=== PATIENT | male | born 1935 | race Caucasian/White ===

== ENCOUNTER 2016-06-15 09:27 | Inpatient (IN) | payer OTHER ==
[~2016-06-15] VITALS: Ht 167.6 cm; Wt 60.8 kg
[2016-06-15 09:30] VITALS: BP 141/87; PULSE 101; RESP 30; TEMP 97.1; O2SAT 84
--- NOTE | 2016-06-15 09:30 | NUR ---
Arrived via WC from home with SOB for several daym, was seen yesterday at [facility], started on Doxycycline. brought pt in due to worsening SOB and poor PO intake x 2 days. Patient is tachypneac with resp 30 with accessory muscle use, speakingin full snetences. Placed in room 2 . Placed on research and development specialist, blood pressure machine and pulse oximeter. To gown for exam. Side rails up. Report given to Eduardo ELIZONDO.
--- NOTE | 2016-06-15 09:35 | NUR ---
Dr. Chow at beside examaining patient.
--- NOTE | 2016-06-15 09:40 | NUR ---
Patient brought in by his with chief complaint of persistent cough x 2 weeks.Patient states he has had low energy, poor appetite x 3 days. Upon assessement patient presents labored breathing, O2sat 88%. A-fib on monitor noted. Addendum: 06/15/16 at 1042 by YANET Pt states no other complaint or injuries,none noted.
[2016-06-15] MEDS ORDERED: IPRATROPIUM/ALBUTEROL SULFATE 3 ML AMPUL.NEB INH ONE (09:45)
[2016-06-15] MEDS ORDERED: AZITHROMYCIN 500 MG in NS 250 ML IV ONE (09:45)
[2016-06-15] MEDS ORDERED: methylPREDNISolone SOD SUCC/PF 62.5 MG/ML VIAL IVP ONE (09:45)
[2016-06-15] MEDS ORDERED: cefTRIAXone 1 GM IVPB PREMIX 50 ML IV ONE (09:45)
--- NOTE | 2016-06-15 09:50 | NUR ---
# 20 gauge angiocath placed to LAC. Use of asceptic technique. Opsite placed over site. Blood return noted. Blood for lab drawn from site. Flushed with 10 cc of normal saline. No evidence of infiltration noted. Patient tolerated well.
[2016-06-15 10:03] LABS: BASOPHILS % (AUTO) 0.2 % (0.0-2.0); EOSINOPHILS % (AUTO) 0.6 % (0.0-4.0); HEMATOCRIT 39.8 % (36-54); HEMOGLOBIN 13.4 g/dL (14.0-18.0); LYMPHOCYTES # (AUTO) 1.1 K/uL (1.0-5.5); LYMPHOCYTES % (AUTO) 15.6 % (20.5-51.5); MEAN CORPUSCULAR HEMOGLOBIN 35 pg (27-31); MEAN CORPUSCULAR HGB CONC 34 % (32-36); MEAN CORPUSCULAR VOLUME 103 fL (79.0-98.0); MONOCYTES # (AUTO) 0.4 K/uL (0.0-1.0); MONOCYTES % (AUTO) 5.1 % (1.7-9.3); NEUTROPHILS # (AUTO) 5.4 K/uL (1.8-7.7); NEUTROPHILS % (AUTO) 78.5 % (40.0-70.0); PLATELET COUNT (AUTO) 168 K/uL (130-430); RED BLOOD CELL COUNT(AUTO) 3.86 MIL/uL (4.2-6.2); RED CELL DISTRIBUTION WIDTH 14.7 % (9.0-15.0); WHITE BLOOD COUNT (AUTO) 6.9 K/uL (4.8-10.8)
--- NOTE | 2016-06-15 10:10 | NUR ---
Patient medicated as ordered.Patient tolerating well.
[2016-06-15] MEDS: NACL 0.9% 1,000 ML IV SCH ×2 (10:11→10:12)
[2016-06-15 10:13] LABS: ANION GAP 6 (5-15); CALCIUM 8.4 mg/dL (8.4-11.0); CHLORIDE 102 mmol/L (98-107); CREATININE 0.85 mg/dL (0.55-1.30); GLUCOSE 99 mg/dL (70-99); POTASSIUM 4.1 mmol/L (3.5-5.1); SODIUM SERUM 136 mmol/L (136-145); UREA NITROGEN, BLOOD 14 mg/dL (8-21)
[2016-06-15 10:14] LABS: BLOOD GAS PH 7.437 (7.350-7.450)
[2016-06-15 10:15] LABS: INR 2.6 (0.80-1.20); PROTHROMBIN TIME 29.5 SECS (9.5-12.5)
[2016-06-15 10:16] LABS: ABG TOTAL HEMOGLOBIN 13.2 G/dL (12.0-18.0); BLOOD GAS BASE EXCESS 0.4 mmol/L (-3.0-3.0); BLOOD GAS HHB 11.2 % (0.0-6.0); BLOOD O2Hb% 87.7 % (94.0-97.0)
[2016-06-15 10:18] LABS: ALANINE AMINOTRANSFERASE 24 U/L (12-78); ALBUMIN 3.6 g/dL (3.4-4.8); ASPARTATE AMINOTRANSFERASE 31 U/L (10-37); TOTAL BILIRUBIN 1.1 mg/dL (0.0-1.0); TOTAL PROTEIN, SERUM 6.8 g/dL (6.4-8.3)
--- NOTE | 2016-06-15 10:40 | NUR ---
Patient off unit for CT scan
--- NOTE | 2016-06-15 10:57 | NUR ---
Patient returned from CT scan. Placed back on monitor.
[2016-06-15] MEDS ORDERED: AZITHROMYCIN 500 MG/VIAL (ZITHROMAX) IV ONE (11:00)
--- NOTE | 2016-06-15 11:00 | NUR ---
# 16 FR In and Out catheter with use of sterile technique performed per Dr. Chow verbal order. Immediate return of 10 ml clear, yellow urine noted. Urine sample collected and sent to lab. Pt tolerated procedure well.
[2016-06-15] MEDS ORDERED: APIX2.5T PO (11:34)
[2016-06-15] MEDS ORDERED: FERR256T PO (11:34)
[2016-06-15] MEDS ORDERED: APIX5TAB PO (11:34)
[2016-06-15] MEDS ORDERED: OMEG1CAP48 PO (11:34)
[2016-06-15] MEDS ORDERED: DOXY150C4 PO (11:34)
[2016-06-15] MEDS ORDERED: VEN2 PO (11:34)
[2016-06-15] MEDS ORDERED: METH2.5T PO (11:34)
[2016-06-15] MEDS ORDERED: FOLI-43 PO (11:34)
[2016-06-15] MEDS ORDERED: SIMV20TA6 PO (11:34)
[2016-06-15] MEDS ORDERED: AMLO5TAB4 PO (11:34)
[2016-06-15] MEDS ORDERED: CHOL200019 PO (11:34)
[2016-06-15] MEDS ORDERED: METO50TA3 PO (11:34)
[2016-06-15] MEDS ORDERED: LISI-600 PO (11:34)
[2016-06-15] MEDS ORDERED: ALBU2.5V7 INH (11:34)
--- NOTE | 2016-06-15 11:35 | NUR ---
Medication reconciliation completed with information provided by patient. Any prior medication reconciliation on file was reviewed and corrected.
[2016-06-15 12:05] LABS: BILIRUBIN,URINE NEGATIVE (NEGATIVE); BLOOD, URINE NEGATIVE (NEGATIVE); CLARITY/URINE CLEAR (CLEAR); COLOR,URINE YELLOW (YELLOW); GLUCOSE,URINE NEGATIVE (NEGATIVE); KETONES,URINE 1+ (NEGATIVE); LEUKOCYTE ESTERASE ,URINE NEGATIVE (NEGATIVE); NITRITE, URINE NEGATIVE (NEGATIVE); PROTEIN URINE NEGATIVE (NEGATIVE); UROBILINOGEN,URINE 0.2 (0.2-1.0)
[2016-06-15 12:20] LABS: BACTERIA,URINE MODERATE /HPF (None Seen); MUCUS,URINE 1+ /LPF (None Seen); RBC,URINE 0-3 /HPF (0-3); WBC,URINE 0-3 /HPF (0-3)
--- NOTE | 2016-06-15 12:50 | NUR ---
Patient will be admitted to care of Dr Edge. Admitted to tele unit. Will go to room 104 B. Belongings list completed. Summary report printed. Report given at bedside.
--- NOTE | 2016-06-15 13:00 | NUR ---
ADMISSION NOTE Received patient from ER via aimee, received report from JONES ELIZONDO. Patient admitted with diagnosis of COPD EXACERBATION. Patient oriented to hospital routine, call light, toileting and safety-patient verbalized understanding.
[2016-06-15 13:07] VITALS: BP 135/78; PULSE 65; RESP 18; TEMP 97.8; O2SAT 98
--- NOTE | 2016-06-15 13:10 | NUR ---
notes rec patient awake laert with hob elevated with o2 at 2 liters via nasal cannula. no sob noted. resp easy and unlabored but noted with bilateral wheezing. accompanied by at the bedside. bed in low position and side rails up and locked. call light within reached and instructed to call for assistance. provided urinal at bedside. will continue to monitor patient.
[2016-06-15] MEDS ORDERED: IPRATROPIUM/ALBUTEROL SULFATE 3 ML AMPUL.NEB INH PRN (14:00)
--- NOTE | 2016-06-15 14:00 | NUR ---
rounds pt resting with hob elevated. o2 at 2 liters via nasal cannula in place.
[2016-06-15 14:06] VITALS: BP 135/78; PULSE 65
[2016-06-15] MEDS: IPRATROPIUM/ALBUTEROL SULFATE 3 ML AMPUL.NEB INH SCH ×3 (15:18→23:44)
--- NOTE | 2016-06-15 16:00 | NUR ---
rounds sleeping at this time. no sob noted. call light within reached.
[2016-06-15] MEDS: methylPREDNISolone SOD SUCC/PF 62.5 MG/ML VIAL IVP SCH ×2 (18:28→21:16)
--- NOTE | 2016-06-15 18:45 | NUR ---
closing notes pt resting comfortably at this time. no acute distress, resp easy and unlabored with o2 at 2 liters via nasal cannula. stable. no sob noted. uses the urinal at bedside, in the room with patient.
[2016-06-15 20:00] VITALS: BP 127/87; PULSE 96; RESP 18; TEMP 98.3; O2SAT 95
--- NOTE | 2016-06-15 20:07 | NUR ---
MD APONTE CALLED [facility] AT [phone]NGUYEN CERVANTES CHIBAO DANCE CRITIC.
--- NOTE | 2016-06-15 20:10 | NUR ---
PM Shift Assessment Received patient lying in bed, AAO x4, no acute distress noted, is at the bedside. Assessment complete, vital signs stable, 95% oxygen saturation with nasal cannula at 2L/min, no complain of difficulty breathing or shortness of breath. IV noted to left AC, saline locked at this time, flushes well, no redness or swelling noted to IV site. Plan of care discussed with patient and at bedside, they verbalized understanding. Patient is verbally able to make needs known and encouraged to do so. Call light is within reach, all fall and safety precautions in place, will continue to monitor for change in patient status.
--- NOTE | 2016-06-15 20:22 | NUR ---
MD Called Dr Reyes, infection prevention specialist for Dr Osullivan, was called and made aware that patient states he usually takes melatonin at home to help him sleep and is requesting something for sleep. New orders received for PRN Restoril 15mg PO QHS. Orders noted and to be carried out.
[2016-06-15] MEDS: TEMAZEPAM 15 MG CAPSULE PO PRN (21:17)
[2016-06-15] MEDS: SIMVASTATIN 20 MG TABLET PO SCH (21:17)
--- NOTE | 2016-06-15 22:20 | NUR ---
RN Rounds Patient is resting quietly in bed, no acute respiratory distress noted. Scheduled medications were administered per MD order earlier. PRN Restoril was administered per patient request. Encouraged patient to call with all needs, he verbalized understanding. Call light is within reach, all fall and safety precautions in place, will continue to monitor. Addendum: 06/15/16 at 2225 by Alma Delia Irving RN Warm tea provided for throat comfort.
[2016-06-16 00:05] VITALS: BP 128/84; PULSE 107; RESP 17; TEMP 96.2; O2SAT 100
--- NOTE | 2016-06-16 00:19 | NUR ---
RN Rounds Patient is resting quietly in bed, no acute respiratory distress noted. Vital signs stable, patient tolerating nasal cannula at 2L/min well. Call light is within reach, all fall and safety precautions in place, will continue to monitor.
--- NOTE | 2016-06-16 02:24 | NUR ---
RN Rounds Patient is sleeping but easily arousable, no acute distress noted. Oxygen saturation 94% with nasal cannula at 2L/min. Call light is within reach, all fall and safety precautions in place, will continue to monitor.
[2016-06-16] MEDS: IPRATROPIUM/ALBUTEROL SULFATE 3 ML AMPUL.NEB INH SCH ×6 (03:43→23:10)
[2016-06-16 04:19] VITALS: BP 137/100; PULSE 95; RESP 17; TEMP 97.2; O2SAT 93
--- NOTE | 2016-06-16 04:38 | NUR ---
RN Rounds Patient is resting quietly in bed, no acute distress noted. Warm blanket provided for comfort and patient made comfortable in bed. Call light is within reach, all fall and safety precautions in place, will continue to monitor.
[2016-06-16] MEDS: methylPREDNISolone SOD SUCC/PF 62.5 MG/ML VIAL IVP SCH ×3 (05:44→21:59)
--- NOTE | 2016-06-16 06:35 | NUR ---
Closing Notes Patient is resting quietly in bed, no acute distress noted. No complain of shortness of breath throughout shift. Patient is stable, all needs met throughout shift. Will continue to monitor until endorsed to AM nurse at bedside.
[2016-06-16 06:50] LABS: ANION GAP 7 (5-15); CALCIUM 8.4 mg/dL (8.4-11.0); CHLORIDE 103 mmol/L (98-107); GLUCOSE 310 mg/dL (70-99); POTASSIUM 3.6 mmol/L (3.5-5.1); SODIUM SERUM 136 mmol/L (136-145); UREA NITROGEN, BLOOD 15 mg/dL (8-21)
[2016-06-16 06:54] LABS: BASOPHILS % (AUTO) 0.1 % (0.0-2.0); EOSINOPHILS % (AUTO) 0.1 % (0.0-4.0); HEMATOCRIT 34.9 % (36-54); HEMOGLOBIN 11.6 g/dL (14.0-18.0); LYMPHOCYTES # (AUTO) 0.4 K/uL (1.0-5.5); LYMPHOCYTES % (AUTO) 3.6 % (20.5-51.5); MEAN CORPUSCULAR HEMOGLOBIN 34 pg (27-31); MEAN CORPUSCULAR HGB CONC 33 % (32-36); MEAN CORPUSCULAR VOLUME 103 fL (79.0-98.0); MONOCYTES # (AUTO) 0.2 K/uL (0.0-1.0); MONOCYTES % (AUTO) 1.9 % (1.7-9.3); NEUTROPHILS # (AUTO) 11.7 K/uL (1.8-7.7); NEUTROPHILS % (AUTO) 94.3 % (40.0-70.0); PLATELET COUNT (AUTO) 138 K/uL (130-430); RED CELL DISTRIBUTION WIDTH 14.6 % (9.0-15.0); WHITE BLOOD COUNT (AUTO) 12.3 K/uL (4.8-10.8)
[2016-06-16 07:42] LABS: INR 2.4 (0.80-1.20); PROTHROMBIN TIME 27.2 SECS (9.5-12.5)
[2016-06-16 08:00] VITALS: BP 140/89; PULSE 140; RESP 20; TEMP 98; O2SAT 94
--- NOTE | 2016-06-16 08:00 | NUR ---
OPENING NOTE RECEIVED REPORT FROM OFF GOING NURSE. PATIENT RESTING COMFORTABLY AT THIS TIME. NO COMPLAINTS OF ACUTE PAIN AT THIS TIME. NO SIGNS OF DISTRESS NOTED AT THIS TIME. OXYGEN APPLIED AT 2L NC. WILL CONTINUE TO MONITOR FOR CHANGES IN STATUS. BED IN LOWEST POSITION, BED ALARM IS ON, AND SIDE RAILS ARE UP. PATIENTS CALL LIGHT WITHIN REACH.
[2016-06-16] MEDS: METOPROLOL TARTRATE 50 MG TABLET PO SCH (08:08)
[2016-06-16] MEDS: LISINOPRIL 20 MG TABLET PO SCH (08:09)
[2016-06-16] MEDS: FOLIC ACID 1 MG TABLET PO SCH (08:09)
[2016-06-16] MEDS: amLODIPine BESYLATE 5 MG TABLET PO SCH (08:09)
[2016-06-16] MEDS: cefTRIAXone 1 GM in D5W 50 ML IV SCH (08:10)
[2016-06-16] MEDS: AZITHROMYCIN 500 MG in NS 250 ML IV SCH (09:42)
--- NOTE | 2016-06-16 10:29 | NUR ---
1000 NOTE PATIENT RESTING COMFORTABLY AT THIS TIME, FAMILY AT BEDSIDE. NO COMPLAINTS OF ACUTE PAIN AT THIS TIME. NO SIGNS OF DISTRESS NOTED AT THIS TIME. WILL CONTINUE TO MONITOR FOR CHANGES IN STATUS. BED IN LOWEST POSITION, BED ALARM IS ON, AND SIDE RAILS ARE UP. PATIENTS CALL LIGHT WITHIN REACH.
[2016-06-16 11:43] VITALS: BP 109/61; PULSE 97; RESP 16; TEMP 97; O2SAT 92
--- NOTE | 2016-06-16 11:52 | NUR ---
Gregorio scale evaluation: Patient evaluated for low Gregorio score 15. Patient was awake, alert, oriented, and received in a Middle [place] bed with an Atmos-Air 9000 mattress. Patient is wheelchair and bed bound, and needs assist to turn in bed. 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 Recommend encourage and assist patient as needed with repositioning side to side only every 2 hours with pillow support, and offload pressure areas with pillows for pressure redistribution. Elevate, offload and float bilateral heels with pillows. Use moisture barrier cream on buttocks and other moisture susceptible areas 4 times a day, and as needed for soiling. Performed skin care and monitor skin integrity every shift. Place patient on a low air loss mattress.
[2016-06-16 12:27] LABS: ABG TOTAL HEMOGLOBIN 11.9 G/dL (12.0-18.0); BLOOD GAS BASE EXCESS 0.8 mmol/L (-3.0-3.0); BLOOD GAS COHb% 0.1 % (0.5-1.5); BLOOD GAS HHB 5.7 % (0.0-6.0); BLOOD GAS PH 7.464 (7.350-7.450); BLOOD O2Hb% 94.1 % (94.0-97.0)
[2016-06-16 15:34] VITALS: BP 120/74; PULSE 105; RESP 19; TEMP 97; O2SAT 96
--- NOTE | 2016-06-16 18:42 | NUR ---
1800 NOTE AWAITING TRANSFER OF CARE TO ENROLLMENT MANAGEMENT MANAGER NURSE. PATIENT RESTING COMFORTABLY AT THIS TIME, FAMILY AT BEDSIDE. NO COMPLAINTS OF ACUTE PAIN AT THIS TIME. NO SIGNS OF DISTRESS NOTED AT THIS TIME. WILL CONTINUE TO MONITOR FOR CHANGES IN STATUS. BED IN LOWEST POSITION, BED ALARM IS ON, AND SIDE RAILS ARE UP. PATIENTS CALL LIGHT WITHIN REACH.
--- NOTE | 2016-06-16 19:15 | NUR ---
initial nursing notes: Patient awake in bed. Patient has IV access on the left AC. Patient denies of having pain.
[2016-06-16 19:59] VITALS: BP 120/88; PULSE 118; RESP 18; TEMP 97.1; O2SAT 93
--- NOTE | 2016-06-16 21:15 | NUR ---
nursing rounds: Patient resting in bed, watching television.
[2016-06-16] MEDS: TEMAZEPAM 15 MG CAPSULE PO PRN (22:04)
[2016-06-16] MEDS: SIMVASTATIN 20 MG TABLET PO SCH (22:04)
--- NOTE | 2016-06-16 23:15 | NUR ---
nursing rounds: Patient asleep in bed. Patient has no shortness of breath.
[2016-06-17 00:04] VITALS: BP_SYST 106; BP_SYST 125; BP_DIAS 71; BP_DIAS 82; PULSE 60; RESP 18; TEMP 97.8; O2SAT 98
--- NOTE | 2016-06-17 01:15 | NUR ---
nursing rounds: Patient sleeping in bed. Patient has no respiratory distress.
--- NOTE | 2016-06-17 03:15 | NUR ---
nursing rounds: Patient asleep in bed. Kept siderails up X 3 and bed alarm on for patient's safety.
[2016-06-17] MEDS: IPRATROPIUM/ALBUTEROL SULFATE 3 ML AMPUL.NEB INH SCH ×3 (03:51→13:38)
[2016-06-17 04:37] VITALS: BP 124/73; PULSE 88; RESP 15; TEMP 98.8; O2SAT 99
--- NOTE | 2016-06-17 05:15 | NUR ---
nursing rounds: Patient calmly resting in bed. Call light within patient's reach.
[2016-06-17] MEDS: methylPREDNISolone SOD SUCC/PF 62.5 MG/ML VIAL IVP SCH ×2 (05:49→14:13)
[2016-06-17 06:57] LABS: HEMATOCRIT 34.9 % (36-54); HEMOGLOBIN 11.8 g/dL (14.0-18.0); LYMPHOCYTES # (AUTO) 0.4 K/uL (1.0-5.5); LYMPHOCYTES % (AUTO) 2.4 % (20.5-51.5); MEAN CORPUSCULAR HEMOGLOBIN 35 pg (27-31); MEAN CORPUSCULAR HGB CONC 34 % (32-36); MEAN CORPUSCULAR VOLUME 103 fL (79.0-98.0); MONOCYTES # (AUTO) 0.4 K/uL (0.0-1.0); MONOCYTES % (AUTO) 2.2 % (1.7-9.3); NEUTROPHILS # (AUTO) 15.8 K/uL (1.8-7.7); RED CELL DISTRIBUTION WIDTH 14.9 % (9.0-15.0); WHITE BLOOD COUNT (AUTO) 16.6 K/uL (4.8-10.8)
[2016-06-17 07:14] LABS: INR 1.6 (0.80-1.20); PROTHROMBIN TIME 17.3 SECS (9.5-12.5)
[2016-06-17 07:18] LABS: ALANINE AMINOTRANSFERASE 28 U/L (12-78); ALBUMIN 2.8 g/dL (3.4-4.8); ANION GAP 5 (5-15); ASPARTATE AMINOTRANSFERASE 23 U/L (10-37); CALCIUM 8.3 mg/dL (8.4-11.0); CHLORIDE 105 mmol/L (98-107); CREATININE 0.82 mg/dL (0.55-1.30); GLUCOSE 156 mg/dL (70-99); POTASSIUM 3.5 mmol/L (3.5-5.1); SODIUM SERUM 139 mmol/L (136-145); TOTAL BILIRUBIN 0.3 mg/dL (0.0-1.0); TOTAL PROTEIN, SERUM 6.2 g/dL (6.4-8.3); UREA NITROGEN, BLOOD 21 mg/dL (8-21)
--- NOTE | 2016-06-17 07:31 | NUR ---
closing nursing notes: Patient is awake, alert and oriented X 4. Patient is in no acute respiratory distress. No episodes of fall and no injuries throughout the hub lead. Provided nursing report to incoming morning shift nurses, Catie RN, at patient's bedside.
[2016-06-17 07:40] LABS: PLATELET COUNT (AUTO) 161 K/uL (130-430)
[2016-06-17 07:51] VITALS: BP 132/75; PULSE 141; RESP 18; TEMP 98.1; O2SAT 94
--- NOTE | 2016-06-17 08:06 | NUR ---
OPENING NOTE: RECEIVED REPORT FROM OFF GOING NURSE, DAVI. PATIENT RESTING COMFORTABLY AT THIS TIME. NO COMPLAINTS OF PAIN, AND NO NOTED SIGNS OF DISTRESS AT THIS TIME. PATIENTS BED IN LOWEST POSITION, CALL LIGHT WITHIN REACH, AND BED ALARM IS ON. PATIENT IS TO WORK WITH PHYSICAL THERAPY TODAY. WILL CONTINUE TO MONITOR FOR CHANGES IN STATUS.
[2016-06-17] MEDS: cefTRIAXone 1 GM in D5W 50 ML IV SCH (08:32)
[2016-06-17] MEDS: amLODIPine BESYLATE 5 MG TABLET PO SCH (08:33)
[2016-06-17] MEDS: LISINOPRIL 20 MG TABLET PO SCH (08:33)
[2016-06-17] MEDS: FOLIC ACID 1 MG TABLET PO SCH (08:33)
[2016-06-17] MEDS: METOPROLOL TARTRATE 50 MG TABLET PO SCH (08:34)
[2016-06-17 08:51] LABS: ABG TOTAL HEMOGLOBIN 12.8 G/dL (12.0-18.0); BLOOD GAS BASE EXCESS 0.8 mmol/L (-3.0-3.0); BLOOD GAS COHb% 0.5 % (0.5-1.5); BLOOD GAS HHB 7.4 % (0.0-6.0); BLOOD GAS PH 7.437 (7.350-7.450); BLOOD O2Hb% 91.7 % (94.0-97.0)
[2016-06-17] MEDS: AZITHROMYCIN 500 MG in NS 250 ML IV SCH (09:58)
[2016-06-17 10:07] LABS: NEUTROPHILS % (AUTO) 95.4 % (40.0-70.0)
--- NOTE | 2016-06-17 10:43 | NUR ---
CM PAGE Left voice mail for Jessica Smith ([phone]). Awaiting call back return.
--- NOTE | 2016-06-17 10:56 | NUR ---
1000 NOTE PATIENT RESTING COMFORTABLY WITH AT BEDSIDE. PATIENT UP WITH PHYSICAL THERAPY, WALKS WITH WALKER, WEAKNESS PRESENT. CHEST XRAY RESULTS WERE IN. CALLED SPOKE WITH DR. GARCIA REGARDING POSSIBLE DISCHARGE. RESULTS WERE GIVEN REGARDING PT, ABG, CXR. DISCHARGE ORDER ENTERED. DR. GARCIA WOULD LIKE DISCHARGE PLANNING FOR HOME OXYGEN, PHYSICAL THERAPY, AND FOLLOW UP ORDER FOR DR. MAY NEXT WEEK. WENT OVER MEDICATIONS WITH HIM. HE WILL CALL IN PRESCRIPTION TO PHARMACY FOR LEVAQUIN, PREDNISONE, AND ELIQUIS. PAGED COFFEE BREWER WITH [facility]. TALKED WITH FAMILY REGARDING DISCHARGE ORDER. PATIENT AND VERBALIZED UNDERSTANDING. WILL CONTINUE TO KEEP THEM UPDATED ON DISCHARGE PROCESS. BED IN LOWEST POSITION, CALL LIGHT WITHIN REACH, SIDE RAILS UP, AND BED ALARM IS ON. WILL CONTINUE TO MONITOR PATIENT FOR CHANGES IN STATUS.
[2016-06-17 11:26] VITALS: BP 125/64; PULSE 101; RESP 19; TEMP 97; O2SAT 98
--- NOTE | 2016-06-17 12:52 | NUR ---
1200 NOTE PATIENT RESTING COMFORTABLY IN BED, NO SIGNS OF DISTRESS NOTED. PATIENT DENIES PAIN AT THIS TIME. PATIENTS BED IS IN LOWEST POSITION, CALL LIGHT WITHIN REACH, AND BED ALARM IS ON. WILL CONTINUE TO MONITOR PATIENT FOR CHANGES IN STATUS.
--- NOTE | 2016-06-17 14:23 | NUR ---
1400 NOTE PATIENT RESTING COMFORTABLY AT THIS TIME. PATIENT HAS NO COMPLAINTS OF PAIN AT THIS TIME. NO NOTABLE SIGNS OF DISTRESS AT THIS TIME. PATIENTS BED IN LOWEST POSITION, CALL LIGHT WITHIN REACH. AND SIDE RAILS ARE UP. PATIENT AWAITING DISCHARGE, TEACHING TO BE DONE WITH PATIENT AND . , [facility] IS CONTACTED AND WILL BRING PATIENT CLOTHING TO GO HOME IN. WILL CONTINUE TO MONITOR PATIENT FOR CHANGES IN STATUS.
[2016-06-17 14:37] VITALS: BP 116/76; PULSE 102; RESP 18; TEMP 97.8; O2SAT 92
[2016-06-17 15:32] VITALS: BP 120/87; PULSE 82; RESP 16; TEMP 96.4; O2SAT 92
--- NOTE | 2016-06-17 16:25 | NUR ---
1600 NOTE/DISCHARGE PATIENT DISCHARGED HOME, AAOX4. PATIENT LEFT IN STABLE CONDITION. ARM BAND REMOVED, IV DISCONTINUED. PATIENT TEACHING WAS DONE WITH PATIENT AND , VERBALIZED UNDERSTANDING OF INSTRUCTIONS. PATIENT TO FOLLOW UP WITH PRIMARY CARE PROVIDER ON SUNDAY OR SUNDAY. MEDICATIONS TO BE DELIVERED TO THE HOUSE. PATIENT BELONGINGS INVENTORIED AND SENT HOME WITH PATIENT.
[2016-06-17] MEDS ORDERED: WARFARIN SODIUM 2 MG TABLET PO SCH (18:00)
--- NOTE | 2016-06-20 11:40 | NUR ---
Discharge Follow Up Phone Call Chart reviewed in preparation for phone call. [facility] noted no follow up note as to if home health and O2 had been arranged by [facility]. Discussed with Haleigh Shea, who left a voicemail for [facility] Lopez CM. Will continue to follow up. Addendum: 06/20/16 at 1458 by Adriana Aragon LCSW Jessica with [facility] called. Patient did not qualify for O2. Jessica stated that patient will be enrolled in COPD clinic. [facility] faxed home health for PT order to Jessica who will arrange it. [facility] phoned patient, , and spoke with patient's , Florecita. Florecita stated that patient continues to have back pain and has been nauseous. They saw patient's PCP today and discussed. PCP will try again to get O2 for patient. Discussed that they should be hearing from the home health agency soon about PT. They have filled all prescriptions and patient is taking them as directed.
--- NOTE | 2016-06-20 14:06 | NUR ---
DISCHARGE PLANNING Received return call from Jessica from [facility] who stated patient did not qualify for home O2. Faxed requested EMR. Jessica stated she would place patient on COPD program with [facility] and will follow up and arrange home health. NISHA Wright made aware.
== END 2016-06-17 16:25 | disposition home or self-care (01) | DRG 190 ==
LOC: SED 09:27 → STU 12:30
PROVIDERS: ADMIT Internal Medicine; ATTEND Internal Medicine
DX: J44.0 Chronic obstructive pulmonary disease with (acute) lower respiratory infection (principal); J18.9 Pneumonia, unspecified organism; J44.1 Chronic obstructive pulmonary disease with (acute) exacerbation; R09.02 Hypoxemia; I10 Essential (primary) hypertension; E78.5 Hyperlipidemia, unspecified; I48.2 Chronic atrial fibrillation; Z79.01 Long term (current) use of anticoagulants; Z79.899 Other long term (current) drug therapy; Z87.891 Personal history of nicotine dependence
CPT/HCPCS: 36415; 36600; 71010; 71250-TC; 80048; 80053; 81000-TC; 82803-TC; 83605; 83880; 84484; 85025; 85610-TC; 85730-TC; 87040-TC; 87086; 93005; 94640; 94760; 96365; 96367; 96375; 97110-GP; 99285; J0456; J0696; J2930; J7030; J7040; J7050; J7060

== ENCOUNTER 2018-03-10 16:44 | Inpatient (IN) | payer BC, OTHER ==
[~2018-03-10] VITALS: Ht 172.7 cm; Wt 56.2 kg
[~2018-03-10 16:44] MED LIST: ALBU2.5V7 INH; AMLO5TAB4 PO; APIX2.5T PO; APIX5TAB PO; CHOL200019 PO; FERR256T PO; FOLI-43 PO; LISI-600 PO; METH2.5T PO; METO50TA16 PO; OMEG1CAP48 PO; SIMV20TA6 PO; VEN2 PO
[2018-03-10] MEDS ORDERED: NACL 0.9% 1,000 ML IV ONE (16:47)
[2018-03-10 16:59] VITALS: BP_SYST 135
[2018-03-10 17:26] LABS: BASOPHILS % (AUTO) 0.2 % (0.0-2.0); EOSINOPHILS % (AUTO) 0.3 % (0.0-4.0); HEMATOCRIT 41.3 % (36-54); HEMOGLOBIN 13.6 g/dL (14.0-18.0); LYMPHOCYTES # (AUTO) 1.2 K/uL (1.0-5.5); LYMPHOCYTES % (AUTO) 18.6 % (20.5-51.5); MEAN CORPUSCULAR HEMOGLOBIN 35 pg (27-31); MEAN CORPUSCULAR HGB CONC 33 % (32-36); MEAN CORPUSCULAR VOLUME 107 fL (79.0-98.0); MONOCYTES # (AUTO) 0.7 K/uL (0.0-1.0); NEUTROPHILS # (AUTO) 4.5 K/uL (1.8-7.7); NEUTROPHILS % (AUTO) 69.9 % (40.0-70.0); PLATELET COUNT (AUTO) 212 K/uL (130-430); RED BLOOD CELL COUNT(AUTO) 3.86 MIL/uL (4.2-6.2); RED CELL DISTRIBUTION WIDTH 14.4 % (9.0-15.0); WHITE BLOOD COUNT (AUTO) 6.4 K/uL (4.8-10.8)
[2018-03-10] MEDS ORDERED: ALBUTEROL SULFATE 0.083% 2.5 MG/3 ML VIAL.NEB IH ONE (17:30)
[2018-03-10] MEDS ORDERED: methylPREDNISolone SOD SUCC/PF 62.5 MG/ML VIAL IVP ONE (17:30)
[2018-03-10] MEDS ORDERED: IPRATROPIUM BROM 0.5 MG/2.5 ML VIAL.NEB (ATROVENT) IH ONE (17:30)
[2018-03-10] MEDS ORDERED: cefTRIAXone 1 GM IVPB PREMIX 50 ML IV ONE (17:30)
[2018-03-10 17:34] LABS: ANION GAP 11 (5-15); CALCIUM 9.5 mg/dL (8.4-11.0); CHLORIDE 95 mmol/L (98-107); CREATININE 0.93 mg/dL (0.55-1.30); GLUCOSE 107 mg/dL (70-99); POTASSIUM 3.7 mmol/L (3.5-5.1); SODIUM SERUM 132 mmol/L (136-145); UREA NITROGEN, BLOOD 16 mg/dL (8-21)
[2018-03-10 17:37] LABS: INR 1.1 (0.80-1.20); PROTHROMBIN TIME 10.9 SECS (9.5-12.5)
[2018-03-10 17:40] LABS: ALANINE AMINOTRANSFERASE 25 U/L (12-78); ALBUMIN 3.5 g/dL (3.4-4.8); ASPARTATE AMINOTRANSFERASE 28 U/L (10-37); LIPASE 241 U/L (73-393); TOTAL BILIRUBIN 0.6 mg/dL (0.0-1.0)
[2018-03-10 18:55] VITALS: BP_SYST 141
[2018-03-10 19:00] VITALS: BP_SYST 141
[2018-03-10 19:25] VITALS: BP_SYST 141
[2018-03-10 20:00] VITALS: BP_SYST 114
[2018-03-10] MEDS ORDERED: ONDANSETRON HCL 4 MG/2 ML VIAL IVP PRN (20:00)
[2018-03-10] MEDS ORDERED: HYDROcodone/ACETAMIN 5-325 MG TAB (NORCO/ VICODIN) PO PRN (20:00)
[2018-03-10] MEDS ORDERED: ALBUTEROL SULFATE 0.083% 2.5 MG/3 ML VIAL.NEB INH PRN (20:00)
[2018-03-10 20:12] LABS: BILIRUBIN,URINE NEGATIVE (NEGATIVE); BLOOD, URINE NEGATIVE (NEGATIVE); CLARITY/URINE CLEAR (CLEAR); COLOR,URINE YELLOW (YELLOW); GLUCOSE,URINE NEGATIVE (NEGATIVE); KETONES,URINE 1+ (NEGATIVE); LEUKOCYTE ESTERASE ,URINE NEGATIVE (NEGATIVE); NITRITE, URINE NEGATIVE (NEGATIVE); PH,URINE 6.5 (5.0-8.0); PROTEIN URINE NEGATIVE (NEGATIVE); UROBILINOGEN,URINE 0.2 (0.2-1.0)
[2018-03-10] MEDS ORDERED: methylPREDNISolone SOD SUCC 40 MG/ML VIAL IVP SCH (20:15)
[2018-03-10] MEDS ORDERED: ALPRAZolam 0.25 MG TABLET PO ONE (20:30)
[2018-03-10 20:51] VITALS: BP_SYST 141
[2018-03-10] MEDS ORDERED: AZITHROMYCIN 500 MG/VIAL (ZITHROMAX) IV ONE (20:55)
[2018-03-10] MEDS ORDERED: APIXABAN 2.5 MG TABLET PO SCH (21:00)
[2018-03-10] MEDS: SIMVASTATIN 20 MG TABLET PO SCH (21:34)
[2018-03-10] MEDS: AZITHROMYCIN 500 MG in NS 250 ML IV SCH (21:36)
[2018-03-10] MEDS: APIXABAN 2.5 MG TABLET PO SCH (21:39)
[2018-03-10] MEDS ORDERED: LABETALOL HCL 100 MG TABLET PO PRN (22:30)
[2018-03-10] MEDS ORDERED: DILTIAZEM HCL 25 MG/5 ML VIAL IVP ONE (22:45)
[2018-03-11] VITALS: BP_SYST 135
[2018-03-11 07:02] LABS: HEMATOCRIT 35.9 % (36-54); HEMOGLOBIN 11.9 g/dL (14.0-18.0); MEAN CORPUSCULAR HEMOGLOBIN 35 pg (27-31); MEAN CORPUSCULAR HGB CONC 33 % (32-36); MEAN CORPUSCULAR VOLUME 105 fL (79.0-98.0); PLATELET COUNT (AUTO) 166 K/uL (130-430); RED BLOOD CELL COUNT(AUTO) 3.42 MIL/uL (4.2-6.2); RED CELL DISTRIBUTION WIDTH 14.5 % (9.0-15.0); WHITE BLOOD COUNT (AUTO) 3.8 K/uL (4.8-10.8)
[2018-03-11 07:39] LABS: ANION GAP 8 (5-15); CALCIUM 8.7 mg/dL (8.4-11.0); CHLORIDE 101 mmol/L (98-107); CREATININE 0.59 mg/dL (0.55-1.30); GLUCOSE 167 mg/dL (70-99); SODIUM SERUM 138 mmol/L (136-145); UREA NITROGEN, BLOOD 10 mg/dL (8-21)
[2018-03-11 07:54] LABS: ASPARTATE AMINOTRANSFERASE 26 U/L (10-37); TOTAL BILIRUBIN 0.4 mg/dL (0.0-1.0)
[2018-03-11 07:55] LABS: ALANINE AMINOTRANSFERASE 17 U/L (12-78); ALBUMIN 2.7 g/dL (3.4-4.8)
[2018-03-11 08:00] VITALS: BP_SYST 128
[2018-03-11] MEDS ORDERED: ALBUTEROL SULFATE 0.083% 2.5 MG/3 ML VIAL.NEB INH SCH (09:00)
[2018-03-11] MEDS: methylPREDNISolone SOD SUCC 40 MG/ML VIAL IVP SCH ×2 (09:22→20:51)
[2018-03-11] MEDS: FOLIC ACID 1 MG TABLET PO SCH (09:23)
[2018-03-11] MEDS: amLODIPine BESYLATE 5 MG TABLET PO SCH (09:23)
[2018-03-11] MEDS: LISINOPRIL 20 MG TABLET PO SCH (09:24)
[2018-03-11] MEDS: APIXABAN 2.5 MG TABLET PO SCH ×2 (09:26→20:50)
[2018-03-11 10:07] LABS: ATYPICAL LYMPHOCYTES % 0 % (0-0); BAND % (MANUAL) 3 % (0-6); BASOPHILS % (MANUAL) 0 % (0-2); EOSINOPHILS % (MANUAL) 0 % (0-7); LYMPHOCYTES % (MANUAL) 10 % (20-46); MONOCYTES % (MANUAL) 3 % (0-11)
[2018-03-11 12:08] VITALS: BP_SYST 153
[2018-03-11 12:45] VITALS: BP_SYST 150
[2018-03-11] MEDS: LevALBUTEROL HCL 1.25 MG/0.5 ML *CONC.* VIAL.NEB (XOPENEX CONC.) INH SCH ×2 (13:43→19:00)
[2018-03-11] MEDS: IPRATROPIUM BROM 0.5 MG/2.5 ML VIAL.NEB (ATROVENT) INH SCH ×2 (13:43→19:00)
[2018-03-11 16:35] VITALS: BP_SYST 148
[2018-03-11] MEDS ORDERED: cefTRIAXone 1 GM IVPB PREMIX 50 ML IV SCH (17:00)
[2018-03-11 20:00] VITALS: BP_SYST 124
[2018-03-11] MEDS: SIMVASTATIN 20 MG TABLET PO SCH (20:50)
[2018-03-11] MEDS: AZITHROMYCIN 500 MG in NS 250 ML IV SCH (20:51)
[2018-03-12 00:47] VITALS: BP_SYST 138
[2018-03-12] MEDS: IPRATROPIUM BROM 0.5 MG/2.5 ML VIAL.NEB (ATROVENT) INH SCH ×2 (00:48→07:00)
[2018-03-12] MEDS: LevALBUTEROL HCL 1.25 MG/0.5 ML *CONC.* VIAL.NEB (XOPENEX CONC.) INH SCH ×2 (00:48→07:00)
[2018-03-12 06:54] LABS: BASOPHILS % (AUTO) 0.2 % (0.0-2.0); HEMATOCRIT 34.2 % (36-54); HEMOGLOBIN 11.5 g/dL (14.0-18.0); LYMPHOCYTES # (AUTO) 0.6 K/uL (1.0-5.5); LYMPHOCYTES % (AUTO) 5.5 % (20.5-51.5); MEAN CORPUSCULAR HEMOGLOBIN 35 pg (27-31); MEAN CORPUSCULAR HGB CONC 34 % (32-36); MEAN CORPUSCULAR VOLUME 106 fL (79.0-98.0); MONOCYTES # (AUTO) 0.3 K/uL (0.0-1.0); MONOCYTES % (AUTO) 2.4 % (1.7-9.3); NEUTROPHILS # (AUTO) 10.2 K/uL (1.8-7.7); PLATELET COUNT (AUTO) 180 K/uL (130-430); RED BLOOD CELL COUNT(AUTO) 3.24 MIL/uL (4.2-6.2); RED CELL DISTRIBUTION WIDTH 14.5 % (9.0-15.0); WHITE BLOOD COUNT (AUTO) 11.1 K/uL (4.8-10.8)
[2018-03-12 07:01] LABS: ANION GAP 7 (5-15); CALCIUM 8.7 mg/dL (8.4-11.0); CHLORIDE 103 mmol/L (98-107); CREATININE 0.67 mg/dL (0.55-1.30); GLUCOSE 146 mg/dL (70-99); POTASSIUM 4.3 mmol/L (3.5-5.1); SODIUM SERUM 140 mmol/L (136-145); UREA NITROGEN, BLOOD 19 mg/dL (8-21)
[2018-03-12 07:08] LABS: ALANINE AMINOTRANSFERASE 20 U/L (12-78); ALBUMIN 2.5 g/dL (3.4-4.8); ASPARTATE AMINOTRANSFERASE 23 U/L (10-37); TOTAL BILIRUBIN 0.3 mg/dL (0.0-1.0)
[2018-03-12 08:00] VITALS: BP_SYST 134
[2018-03-12] MEDS: methylPREDNISolone SOD SUCC 40 MG/ML VIAL IVP SCH (08:43)
[2018-03-12] MEDS: FOLIC ACID 1 MG TABLET PO SCH (08:43)
[2018-03-12] MEDS: amLODIPine BESYLATE 5 MG TABLET PO SCH (08:44)
[2018-03-12] MEDS: LISINOPRIL 20 MG TABLET PO SCH (08:44)
[2018-03-12] MEDS: APIXABAN 2.5 MG TABLET PO SCH (08:45)
[2018-03-12 10:02] LABS: NEUTROPHILS % (AUTO) 91.9 % (40.0-70.0)
[2018-03-12 10:53] VITALS: BP_SYST 127
== END 2018-03-12 11:15 | disposition home or self-care (01) | DRG 189 ==
LOC: SED 16:44 → STU 17:53
PROVIDERS: ADMIT Internal Medicine; ATTEND Internal Medicine
DX: J96.20 Acute and chronic respiratory failure, unspecified whether with hypoxia or hypercapnia (principal); J44.1 Chronic obstructive pulmonary disease with (acute) exacerbation; E87.2 Acidosis; R65.10 Systemic inflammatory response syndrome (SIRS) of non-infectious origin without acute organ dysfunction; Z96.651 Presence of right artificial knee joint; E86.0 Dehydration; I48.2 Chronic atrial fibrillation; E78.5 Hyperlipidemia, unspecified; I10 Essential (primary) hypertension; Z79.01 Long term (current) use of anticoagulants; Z82.49 Family history of ischemic heart disease and other diseases of the circulatory system; Z87.891 Personal history of nicotine dependence; Z87.81 Personal history of (healed) traumatic fracture
CPT/HCPCS: 36415; 36600; 71045; 80053; 81003; 82550-TC; 82803-TC; 83605; 83690-TC; 84484; 85007; 85025; 85027; 85610-TC; 85730-TC; 87040-TC; 93005; 93306; 94640; 96365; 96375; 99285; G0378; J0456; J0696; J1030; J2930; J3490; J7050; J7612; J7613

== ENCOUNTER 2018-04-13 16:11 | Inpatient (IN) | payer BC ==
[~2018-04-13] VITALS: Ht 172.7 cm; Wt 59.0 kg
[2018-04-13 16:27] VITALS: BP_SYST 123
[2018-04-13] MEDS ORDERED: NACL 0.9% 1,000 ML IV ONE (16:28)
[2018-04-13] MEDS ORDERED: ONDANSETRON HCL 4 MG/2 ML VIAL IVP ONE (16:30)
[2018-04-13] MEDS ORDERED: MORPHINE 4 MG/ML INJ. SYRINGE IVP ONE ×3 (16:30→18:30)
[2018-04-13 17:11] LABS: BASOPHILS % (AUTO) 0.2 % (0.0-2.0); EOSINOPHILS # (AUTO) 0.1 K/uL (0.0-0.4); EOSINOPHILS % (AUTO) 1.7 % (0.0-4.0); HEMATOCRIT 39.7 % (36-54); LYMPHOCYTES # (AUTO) 1.7 K/uL (1.0-5.5); LYMPHOCYTES % (AUTO) 20.4 % (20.5-51.5); MEAN CORPUSCULAR HEMOGLOBIN 35 pg (27-31); MEAN CORPUSCULAR HGB CONC 33 % (32-36); MEAN CORPUSCULAR VOLUME 106 fL (79.0-98.0); MONOCYTES # (AUTO) 0.6 K/uL (0.0-1.0); MONOCYTES % (AUTO) 7.6 % (1.7-9.3); NEUTROPHILS # (AUTO) 6.1 K/uL (1.8-7.7); NEUTROPHILS % (AUTO) 70.1 % (40.0-70.0); PLATELET COUNT (AUTO) 247 K/uL (130-430); RED BLOOD CELL COUNT(AUTO) 3.74 MIL/uL (4.2-6.2); RED CELL DISTRIBUTION WIDTH 15.6 % (9.0-15.0); WHITE BLOOD COUNT (AUTO) 8.5 K/uL (4.8-10.8)
[2018-04-13 17:29] LABS: INR 1.1 (0.80-1.20); PROTHROMBIN TIME 11.2 SECS (9.5-12.5)
[2018-04-13 17:31] LABS: ANION GAP 8 (5-15); CALCIUM 8.7 mg/dL (8.4-11.0); CHLORIDE 104 mmol/L (98-107); GLUCOSE 181 mg/dL (70-99); POTASSIUM 4.8 mmol/L (3.5-5.1); SODIUM SERUM 137 mmol/L (136-145); UREA NITROGEN, BLOOD 20 mg/dL (8-21)
[2018-04-13 17:35] LABS: ALANINE AMINOTRANSFERASE 32 U/L (12-78); ALBUMIN 3.2 g/dL (3.4-4.8); AMYLASE 135 U/L (0-100); ASPARTATE AMINOTRANSFERASE 29 U/L (10-37); LIPASE 207 U/L (73-393); TOTAL BILIRUBIN 0.4 mg/dL (0.0-1.0)
[2018-04-13] MEDS ORDERED: NACL 0.9% 2,000 ML IV ONE (18:00)
[2018-04-13] MEDS ORDERED: ONDANSETRON HCL 4 MG/2 ML VIAL IVP PRN (18:15)
[2018-04-13] MEDS ORDERED: ALBUTEROL SULFATE 2 MG TABLET PO PRN (18:15)
[2018-04-13] MEDS ORDERED: INSULIN LISPRO SLIDING SCALE 100 UNITS/ML VIAL (humaLOG) SUBCUT PRN ×2 (18:30→19:45)
[2018-04-13 19:00] LABS: BILIRUBIN,URINE NEGATIVE (NEGATIVE); BLOOD, URINE NEGATIVE (NEGATIVE); CLARITY/URINE CLEAR (CLEAR); COLOR,URINE YELLOW (YELLOW); GLUCOSE,URINE NEGATIVE (NEGATIVE); KETONES,URINE TRACE (NEGATIVE); LEUKOCYTE ESTERASE ,URINE NEGATIVE (NEGATIVE); NITRITE, URINE NEGATIVE (NEGATIVE); PROTEIN URINE TRACE (NEGATIVE); UROBILINOGEN,URINE 0.2 (0.2-1.0)
[2018-04-13 19:07] LABS: RBC,URINE 0-3 /HPF (0-3); WBC,URINE 0-3 /HPF (0-3)
[2018-04-13 19:08] LABS: BACTERIA,URINE FEW /HPF (None Seen); MUCUS,URINE None Seen /LPF (None Seen)
[2018-04-13] MEDS ORDERED: INSULIN ASPART 100 UNITS/ML, 10 ML VIAL (NovoLOG) SUBCUT PRN (19:15)
[2018-04-13 19:23] VITALS: BP_SYST 156
[2018-04-13] MEDS: NACL 0.9% 1,000 ML IV SCH (19:42)
[2018-04-13] MEDS ORDERED: cefTRIAXone 1 GM IVPB PREMIX 50 ML IV ONE (19:47)
[2018-04-13] MEDS: MORPHINE 4 MG/ML INJ. SYRINGE IVP PRN ×2 (19:59→22:01)
[2018-04-13 20:00] VITALS: BP_SYST 156
[2018-04-13] MEDS: cefTRIAXone 1 GM IVPB PREMIX 50 ML IV SCH (20:00)
[2018-04-13] MEDS: SIMVASTATIN 20 MG TABLET PO SCH (20:26)
[2018-04-13] MEDS: METOPROLOL TARTRATE 50 MG TABLET PO SCH (20:26)
[2018-04-14 00:23] VITALS: BP_SYST 146
[2018-04-14 00:51] VITALS: BP_SYST 123
[2018-04-14] MEDS: MORPHINE 4 MG/ML INJ. SYRINGE IVP PRN ×4 (06:06→22:21)
[2018-04-14 07:00] LABS: EOSINOPHILS % (AUTO) 0.1 % (0.0-4.0); HEMATOCRIT 35.2 % (36-54); LYMPHOCYTES # (AUTO) 0.7 K/uL (1.0-5.5); LYMPHOCYTES % (AUTO) 5.1 % (20.5-51.5); MEAN CORPUSCULAR HEMOGLOBIN 36 pg (27-31); MEAN CORPUSCULAR HGB CONC 34 % (32-36); MEAN CORPUSCULAR VOLUME 107 fL (79.0-98.0); MONOCYTES # (AUTO) 0.7 K/uL (0.0-1.0); NEUTROPHILS # (AUTO) 12.5 K/uL (1.8-7.7); NEUTROPHILS % (AUTO) 89.8 % (40.0-70.0); PLATELET COUNT (AUTO) 188 K/uL (130-430); RED BLOOD CELL COUNT(AUTO) 3.31 MIL/uL (4.2-6.2); RED CELL DISTRIBUTION WIDTH 15.3 % (9.0-15.0); WHITE BLOOD COUNT (AUTO) 13.9 K/uL (4.8-10.8)
[2018-04-14 07:15] LABS: ALANINE AMINOTRANSFERASE 23 U/L (12-78); ALBUMIN 2.5 g/dL (3.4-4.8); ANION GAP 5 (5-15); ASPARTATE AMINOTRANSFERASE 26 U/L (10-37); CALCIUM 7.6 mg/dL (8.4-11.0); CHLORIDE 108 mmol/L (98-107); CREATININE 0.54 mg/dL (0.55-1.30); GLUCOSE 132 mg/dL (70-99); POTASSIUM 5.2 mmol/L (3.5-5.1); SODIUM SERUM 138 mmol/L (136-145); THYROID STIMULATING HORMONE 2.31 uIu/mL (0.34-4.82); TOTAL BILIRUBIN 0.4 mg/dL (0.0-1.0); UREA NITROGEN, BLOOD 13 mg/dL (8-21)
[2018-04-14 07:46] VITALS: BP_SYST 121
[2018-04-14] MEDS ORDERED: SODIUM POLYSTYRENE SULFONATE 15 GM/60 ML UDBTL PO ONE ×2 (08:15→10:30)
[2018-04-14] MEDS: NACL 0.9% 1,000 ML IV SCH ×2 (08:18→14:13)
[2018-04-14] MEDS ORDERED: ALBUTEROL SULFATE 0.083% 2.5 MG/3 ML VIAL.NEB INH SCH (09:00)
[2018-04-14] MEDS: FOLIC ACID 1 MG TABLET PO SCH (09:28)
[2018-04-14] MEDS: amLODIPine BESYLATE 5 MG TABLET PO SCH (09:29)
[2018-04-14] MEDS: METOPROLOL TARTRATE 50 MG TABLET PO SCH ×2 (09:29→20:38)
[2018-04-14] MEDS: LISINOPRIL 20 MG TABLET PO SCH (09:29)
[2018-04-14 11:13] VITALS: BP_SYST 133
[2018-04-14] MEDS ORDERED: ALBUTEROL SULFATE 0.083% 2.5 MG/3 ML VIAL.NEB INH PRN (14:48)
[2018-04-14 15:20] VITALS: BP_SYST 141
[2018-04-14] MEDS: cefTRIAXone 1 GM IVPB PREMIX 50 ML IV SCH (18:13)
[2018-04-14 20:00] VITALS: BP_SYST 128
[2018-04-14] MEDS: SIMVASTATIN 20 MG TABLET PO SCH (20:37)
[2018-04-15] VITALS (9 sets, daily range): BP systolic 76–126
[2018-04-15] MEDS: NACL 0.9% 1,000 ML IV SCH (04:28)
[2018-04-15 06:57] LABS: BASOPHILS % (AUTO) 0.1 % (0.0-2.0); EOSINOPHILS % (AUTO) 0.5 % (0.0-4.0); HEMOGLOBIN 11.3 g/dL (14.0-18.0); LYMPHOCYTES # (AUTO) 0.8 K/uL (1.0-5.5); LYMPHOCYTES % (AUTO) 8.8 % (20.5-51.5); MEAN CORPUSCULAR HEMOGLOBIN 35 pg (27-31); MEAN CORPUSCULAR HGB CONC 33 % (32-36); MEAN CORPUSCULAR VOLUME 105 fL (79.0-98.0); MONOCYTES # (AUTO) 0.6 K/uL (0.0-1.0); MONOCYTES % (AUTO) 6.7 % (1.7-9.3); NEUTROPHILS # (AUTO) 7.6 K/uL (1.8-7.7); NEUTROPHILS % (AUTO) 83.9 % (40.0-70.0); PLATELET COUNT (AUTO) 148 K/uL (130-430); RED BLOOD CELL COUNT(AUTO) 3.23 MIL/uL (4.2-6.2); RED CELL DISTRIBUTION WIDTH 15.4 % (9.0-15.0)
[2018-04-15 08:19] LABS: ANION GAP 2 (5-15); CHLORIDE 104 mmol/L (98-107); GLUCOSE 75 mg/dL (70-99); POTASSIUM 4.3 mmol/L (3.5-5.1); SODIUM SERUM 135 mmol/L (136-145)
[2018-04-15 08:20] LABS: ALANINE AMINOTRANSFERASE 20 U/L (12-78); ALBUMIN 2.3 g/dL (3.4-4.8); ASPARTATE AMINOTRANSFERASE 29 U/L (10-37); CREATININE 0.76 mg/dL (0.55-1.30); TOTAL BILIRUBIN 0.7 mg/dL (0.0-1.0); UREA NITROGEN, BLOOD 11 mg/dL (8-21)
[2018-04-15] MEDS: amLODIPine BESYLATE 5 MG TABLET PO SCH (09:19)
[2018-04-15] MEDS: LISINOPRIL 20 MG TABLET PO SCH (09:19)
[2018-04-15] MEDS: FOLIC ACID 1 MG TABLET PO SCH (09:20)
[2018-04-15] MEDS: METOPROLOL TARTRATE 50 MG TABLET PO SCH ×2 (09:20→20:40)
[2018-04-15] MEDS ORDERED: POLYMYXIN 500,000/BACIT.10,000 UNITS in NS IRR 1 L IR ONE (10:23)
[2018-04-15] MEDS ORDERED: LR 1,000 ML IV SCH (12:20)
[2018-04-15] MEDS ORDERED: NALOXONE HCL 0.4 MG/ML AMP (NARCAN) IVP PRN (12:30)
[2018-04-15] MEDS ORDERED: KETOROLAC TROMETHAMINE 60 MG/2 ML VIAL IM PRN (12:30)
[2018-04-15] MEDS ORDERED: ONDANSETRON HCL 4 MG/2 ML VIAL IVP PRN ×2 (12:30→13:15)
[2018-04-15] MEDS ORDERED: DIPHENHYDRAMINE INJ 50 MG/ML VIAL IM PRN (12:30)
[2018-04-15] MEDS ORDERED: MORPHINE SULFATE 10MG/10ML PF AMP SP SCH (12:30)
[2018-04-15] MEDS ORDERED: DIPHENHYDRAMINE HCL 25 MG CAPSULE PO PRN (13:15)
[2018-04-15] MEDS ORDERED: MILK OF MAGNESIA 30 ML UDC PO PRN (13:15)
[2018-04-15] MEDS ORDERED: ACETAMINOPHEN 500 MG TABLET PO PRN (13:15)
[2018-04-15] MEDS ORDERED: NALOXONE HCL 0.4 MG/ML AMP (NARCAN) IVP ONE (14:45)
[2018-04-15] MEDS: D5/0.45 NS 1,000 ML IV SCH ×2 (15:00→20:47)
[2018-04-15] MEDS ORDERED: NALOXONE HCL 0.4 MG/ML AMP (NARCAN) ONE (15:03)
[2018-04-15 15:46] LABS: BASOPHILS % (AUTO) 0.1 % (0.0-2.0); HEMATOCRIT 32.9 % (36-54); HEMOGLOBIN 10.9 g/dL (14.0-18.0); LYMPHOCYTES # (AUTO) 0.5 K/uL (1.0-5.5); LYMPHOCYTES % (AUTO) 5.1 % (20.5-51.5); MEAN CORPUSCULAR HEMOGLOBIN 35 pg (27-31); MEAN CORPUSCULAR HGB CONC 33 % (32-36); MEAN CORPUSCULAR VOLUME 106 fL (79.0-98.0); MONOCYTES # (AUTO) 0.7 K/uL (0.0-1.0); NEUTROPHILS # (AUTO) 8.8 K/uL (1.8-7.7); NEUTROPHILS % (AUTO) 87.8 % (40.0-70.0); PLATELET COUNT (AUTO) 134 K/uL (130-430); RED BLOOD CELL COUNT(AUTO) 3.09 MIL/uL (4.2-6.2); RED CELL DISTRIBUTION WIDTH 15.6 % (9.0-15.0)
[2018-04-15] MEDS: KETOROLAC TROMETHAMINE 15 MG VIAL IVP SCH (18:00)
[2018-04-15] MEDS: cefTRIAXone 1 GM IVPB PREMIX 50 ML IV SCH (18:58)
[2018-04-15] MEDS ORDERED: NOREPINEPHRINE 4 MG/4 ML VIAL IV ONE (19:33)
[2018-04-15] MEDS: NOREPINEPHRINE BITARTRATE 4 MG in D5W 246 ML IV PRN (19:34)
[2018-04-15] MEDS: SENNOSIDES 8.6 MG TABLET PO SCH (20:39)
[2018-04-15] MEDS: SIMVASTATIN 20 MG TABLET PO SCH (20:39)
[2018-04-15] MEDS ORDERED: NACL 0.9% 1,000 ML IV ONE (22:45)
[2018-04-16] VITALS (24 sets, daily range): BP systolic 87–135
[2018-04-16] MEDS: KETOROLAC TROMETHAMINE 15 MG VIAL IVP SCH ×2 (00:25→05:53)
[2018-04-16] MEDS: NOREPINEPHRINE BITARTRATE 4 MG in D5W 246 ML IV PRN (04:45)
[2018-04-16] MEDS: D5/0.45 NS 1,000 ML IV SCH ×3 (04:46→20:52)
[2018-04-16] MEDS ORDERED: NOREPINEPHRINE 4 MG/4 ML VIAL IV ONE (04:50)
[2018-04-16 07:07] LABS: BASOPHILS % (AUTO) 0.1 % (0.0-2.0); EOSINOPHILS # (AUTO) 0.1 K/uL (0.0-0.4); EOSINOPHILS % (AUTO) 0.7 % (0.0-4.0); HEMATOCRIT 29.9 % (36-54); LYMPHOCYTES # (AUTO) 1.1 K/uL (1.0-5.5); LYMPHOCYTES % (AUTO) 11.8 % (20.5-51.5); MEAN CORPUSCULAR HEMOGLOBIN 36 pg (27-31); MEAN CORPUSCULAR HGB CONC 34 % (32-36); MEAN CORPUSCULAR VOLUME 106 fL (79.0-98.0); MONOCYTES # (AUTO) 0.8 K/uL (0.0-1.0); MONOCYTES % (AUTO) 8.3 % (1.7-9.3); NEUTROPHILS # (AUTO) 7.7 K/uL (1.8-7.7); NEUTROPHILS % (AUTO) 79.1 % (40.0-70.0); PLATELET COUNT (AUTO) 152 K/uL (130-430); RED BLOOD CELL COUNT(AUTO) 2.81 MIL/uL (4.2-6.2); RED CELL DISTRIBUTION WIDTH 15.1 % (9.0-15.0); WHITE BLOOD COUNT (AUTO) 9.7 K/uL (4.8-10.8)
[2018-04-16 07:08] LABS: ANION GAP 7 (5-15); CALCIUM 7.5 mg/dL (8.4-11.0); CHLORIDE 103 mmol/L (98-107); CREATININE 0.83 mg/dL (0.55-1.30); GLUCOSE 170 mg/dL (70-99); POTASSIUM 4.1 mmol/L (3.5-5.1); SODIUM SERUM 136 mmol/L (136-145); UREA NITROGEN, BLOOD 18 mg/dL (8-21)
[2018-04-16] MEDS: ASCORBIC ACID 500 MG TABLET PO SCH ×2 (08:29→20:52)
[2018-04-16] MEDS: FOLIC ACID 1 MG TABLET PO SCH (08:29)
[2018-04-16] MEDS: MULTIVITAMINS TAB 1 TABLET PO SCH (08:29)
[2018-04-16] MEDS: PANTOPRAZOLE SODIUM 40 MG TAB PO SCH (08:29)
[2018-04-16] MEDS: amLODIPine BESYLATE 5 MG TABLET PO SCH (08:30)
[2018-04-16] MEDS: METOPROLOL TARTRATE 50 MG TABLET PO SCH ×2 (08:30→20:57)
[2018-04-16] MEDS: FERROUS SULFATE 140 MG TABLET.ER PO SCH (08:31)
[2018-04-16] MEDS: LISINOPRIL 20 MG TABLET PO SCH (08:31)
[2018-04-16] MEDS ORDERED: ePHEDrine sulfate 50 MG/ML VIAL IM ONE (10:15)
[2018-04-16] MEDS ORDERED: CEFAZOLIN 2 GM IVPB PREMIX 50 ML IV ONE (10:15)
[2018-04-16] MEDS ORDERED: MIDAZOLAM HCL 5 MG/5 ML VIAL IVP ONE (10:15)
[2018-04-16] MEDS ORDERED: MORPHINE SULFATE 10MG/10ML PF AMP EP ONE (10:15)
[2018-04-16] MEDS ORDERED: ONDANSETRON HCL 4 MG/2 ML VIAL IVP ONE (10:15)
[2018-04-16] MEDS ORDERED: LR 1,000 ML IV.SOLN IV ONE (10:15)
[2018-04-16] MEDS: cefTRIAXone 1 GM IVPB PREMIX 50 ML IV SCH (18:00)
[2018-04-16] MEDS: SENNOSIDES 8.6 MG TABLET PO SCH (20:52)
[2018-04-16] MEDS: SIMVASTATIN 20 MG TABLET PO SCH (20:52)
[2018-04-16] MEDS: HYDROcodone/ACETAMIN 5-325 MG TAB (NORCO/ VICODIN) PO PRN (21:18)
[2018-04-17] VITALS (17 sets, daily range): BP systolic 113–152
[2018-04-17] MEDS: D5/0.45 NS 1,000 ML IV SCH (04:56)
[2018-04-17 05:43] LABS: ANION GAP 6 (5-15); CALCIUM 7.7 mg/dL (8.4-11.0); CHLORIDE 102 mmol/L (98-107); CREATININE 0.55 mg/dL (0.55-1.30); GLUCOSE 139 mg/dL (70-99); POTASSIUM 3.3 mmol/L (3.5-5.1); SODIUM SERUM 134 mmol/L (136-145); UREA NITROGEN, BLOOD 11 mg/dL (8-21)
[2018-04-17 05:44] LABS: BASOPHILS % (AUTO) 0.1 % (0.0-2.0); EOSINOPHILS # (AUTO) 0.1 K/uL (0.0-0.4); EOSINOPHILS % (AUTO) 1.3 % (0.0-4.0); HEMATOCRIT 31.1 % (36-54); HEMOGLOBIN 10.1 g/dL (14.0-18.0); LYMPHOCYTES # (AUTO) 0.8 K/uL (1.0-5.5); MEAN CORPUSCULAR HEMOGLOBIN 34 pg (27-31); MEAN CORPUSCULAR HGB CONC 32 % (32-36); MEAN CORPUSCULAR VOLUME 106 fL (79.0-98.0); MONOCYTES # (AUTO) 0.8 K/uL (0.0-1.0); MONOCYTES % (AUTO) 9.6 % (1.7-9.3); NEUTROPHILS # (AUTO) 6.1 K/uL (1.8-7.7); PLATELET COUNT (AUTO) 136 K/uL (130-430); RED BLOOD CELL COUNT(AUTO) 2.93 MIL/uL (4.2-6.2); RED CELL DISTRIBUTION WIDTH 15.4 % (9.0-15.0); WHITE BLOOD COUNT (AUTO) 7.8 K/uL (4.8-10.8)
[2018-04-17] MEDS: PANTOPRAZOLE SODIUM 40 MG TAB PO SCH (08:17)
[2018-04-17] MEDS: ASCORBIC ACID 500 MG TABLET PO SCH ×2 (08:17→20:03)
[2018-04-17] MEDS: FOLIC ACID 1 MG TABLET PO SCH (08:18)
[2018-04-17] MEDS: MULTIVITAMINS TAB 1 TABLET PO SCH (08:18)
[2018-04-17] MEDS: METOPROLOL TARTRATE 50 MG TABLET PO SCH ×2 (08:18→20:02)
[2018-04-17] MEDS: FERROUS SULFATE 140 MG TABLET.ER PO SCH (08:18)
[2018-04-17] MEDS: HYDROcodone/ACETAMIN 5-325 MG TAB (NORCO/ VICODIN) PO PRN ×2 (08:22→18:01)
[2018-04-17] MEDS ORDERED: FUROSEMIDE 20 MG/2 ML VIAL IVP ONE (08:30)
[2018-04-17] MEDS ORDERED: POTASSIUM CHLORIDE 20 MEQ/PKT PACKET PO ONE (09:00)
[2018-04-17] MEDS: cefTRIAXone 1 GM IVPB PREMIX 50 ML IV SCH (18:05)
[2018-04-17] MEDS: SIMVASTATIN 20 MG TABLET PO SCH (20:02)
[2018-04-17] MEDS: SENNOSIDES 8.6 MG TABLET PO SCH (20:03)
[2018-04-18] MEDS: D5/0.45 NS 1,000 ML IV SCH (00:08)
[2018-04-18 00:42] VITALS: BP_SYST 125
[2018-04-18] MEDS: MORPHINE 4 MG/ML INJ. SYRINGE IVP PRN ×2 (01:57→06:22)
[2018-04-18 07:40] LABS: ANION GAP 5 (5-15); CALCIUM 7.7 mg/dL (8.4-11.0); CHLORIDE 100 mmol/L (98-107); CREATININE 0.73 mg/dL (0.55-1.30); GLUCOSE 150 mg/dL (70-99); POTASSIUM 3.9 mmol/L (3.5-5.1); SODIUM SERUM 132 mmol/L (136-145); UREA NITROGEN, BLOOD 10 mg/dL (8-21)
[2018-04-18 07:50] VITALS: BP_SYST 157
[2018-04-18 08:39] LABS: HEMATOCRIT 27.7 % (36-54); HEMOGLOBIN 9.5 g/dL (14.0-18.0); MEAN CORPUSCULAR HEMOGLOBIN 36 pg (27-31); MEAN CORPUSCULAR HGB CONC 34 % (32-36); MEAN CORPUSCULAR VOLUME 106 fL (79.0-98.0); RED BLOOD CELL COUNT(AUTO) 2.62 MIL/uL (4.2-6.2); WHITE BLOOD COUNT (AUTO) 6.7 K/uL (4.8-10.8)
[2018-04-18 08:40] LABS: PLATELET COUNT (AUTO) 149 K/uL (130-430)
[2018-04-18] MEDS ORDERED: APIXABAN 2.5 MG TABLET PO ONE (09:45)
[2018-04-18] MEDS: MULTIVITAMINS TAB 1 TABLET PO SCH (10:03)
[2018-04-18] MEDS: PANTOPRAZOLE SODIUM 40 MG TAB PO SCH (10:03)
[2018-04-18] MEDS: ASCORBIC ACID 500 MG TABLET PO SCH ×2 (10:03→21:03)
[2018-04-18] MEDS: FOLIC ACID 1 MG TABLET PO SCH (10:03)
[2018-04-18] MEDS: METOPROLOL TARTRATE 50 MG TABLET PO SCH ×2 (10:04→21:04)
[2018-04-18] MEDS: FERROUS SULFATE 140 MG TABLET.ER PO SCH (10:09)
[2018-04-18 10:28] LABS: BASOPHILS % (AUTO) 0.3 % (0.0-2.0); EOSINOPHILS % (AUTO) 0.5 % (0.0-4.0); LYMPHOCYTES # (AUTO) 0.6 K/uL (1.0-5.5); LYMPHOCYTES % (AUTO) 8.8 % (20.5-51.5); MONOCYTES # (AUTO) 0.7 K/uL (0.0-1.0); MONOCYTES % (AUTO) 11.1 % (1.7-9.3); NEUTROPHILS # (AUTO) 5.3 K/uL (1.8-7.7); NEUTROPHILS % (AUTO) 79.3 % (40.0-70.0)
[2018-04-18 10:29] LABS: RED CELL DISTRIBUTION WIDTH 15.7 % (9.0-15.0)
[2018-04-18] MEDS: HYDROcodone/ACETAMIN 5-325 MG TAB (NORCO/ VICODIN) PO PRN ×2 (11:36→21:04)
[2018-04-18 12:35] VITALS: BP_SYST 109; BP_SYST 140
[2018-04-18 16:02] VITALS: BP_SYST 123
[2018-04-18] MEDS ORDERED: MAGNESIUM SULFATE 50 ML IV ONE (17:00)
[2018-04-18] MEDS: PIPERACILLIN/TAZO 3.375/DEX-IS 50 ML IV SCH ×2 (17:30→23:29)
[2018-04-18 20:00] VITALS: BP_SYST 129
[2018-04-18] MEDS: methylPREDNISolone SOD SUCC 40 MG/ML VIAL IVP SCH (21:01)
[2018-04-18] MEDS: SENNOSIDES 8.6 MG TABLET PO SCH (21:02)
[2018-04-18] MEDS: APIXABAN 2.5 MG TABLET PO SCH (21:03)
[2018-04-18] MEDS: SIMVASTATIN 20 MG TABLET PO SCH (21:03)
[2018-04-19 01:51] VITALS: BP_SYST 126
[2018-04-19] MEDS: methylPREDNISolone SOD SUCC 40 MG/ML VIAL IVP SCH ×3 (05:13→21:43)
[2018-04-19] MEDS: PIPERACILLIN/TAZO 3.375/DEX-IS 50 ML IV SCH ×3 (05:13→17:26)
[2018-04-19] MEDS: IPRATROPIUM/ALBUTEROL SULFATE 3 ML AMPUL.NEB (DUONEB) INH SCH ×4 (07:13→20:17)
[2018-04-19 07:52] VITALS: BP_SYST 122
[2018-04-19] MEDS: ASCORBIC ACID 500 MG TABLET PO SCH ×2 (08:44→21:41)
[2018-04-19] MEDS: METOPROLOL TARTRATE 50 MG TABLET PO SCH ×2 (08:44→21:42)
[2018-04-19] MEDS: PANTOPRAZOLE SODIUM 40 MG TAB PO SCH (08:44)
[2018-04-19] MEDS: FOLIC ACID 1 MG TABLET PO SCH (08:44)
[2018-04-19] MEDS: MULTIVITAMINS TAB 1 TABLET PO SCH (08:44)
[2018-04-19] MEDS: FERROUS SULFATE 140 MG TABLET.ER PO SCH (08:45)
[2018-04-19] MEDS: APIXABAN 2.5 MG TABLET PO SCH ×2 (08:48→21:44)
[2018-04-19 12:00] VITALS: BP_SYST 125
[2018-04-19 15:39] VITALS: BP_SYST 125
[2018-04-19 20:00] VITALS: BP_SYST 113
[2018-04-19] MEDS: SENNOSIDES 8.6 MG TABLET PO SCH (21:00)
[2018-04-19] MEDS: SIMVASTATIN 20 MG TABLET PO SCH (21:42)
[2018-04-19] MEDS: HYDROcodone/ACETAMIN 5-325 MG TAB (NORCO/ VICODIN) PO PRN (21:42)
[2018-04-20 00:13] VITALS: BP_SYST 120
[2018-04-20] MEDS: PIPERACILLIN/TAZO 3.375/DEX-IS 50 ML IV SCH ×5 (00:19→23:38)
[2018-04-20] MEDS: methylPREDNISolone SOD SUCC 40 MG/ML VIAL IVP SCH (05:50)
[2018-04-20] MEDS: IPRATROPIUM/ALBUTEROL SULFATE 3 ML AMPUL.NEB (DUONEB) INH SCH ×5 (07:04→23:00)
[2018-04-20 08:00] VITALS: BP_SYST 142
[2018-04-20 08:15] LABS: ANION GAP 3 (5-15); CALCIUM 7.8 mg/dL (8.4-11.0); CHLORIDE 102 mmol/L (98-107); CREATININE 0.67 mg/dL (0.55-1.30); GLUCOSE 140 mg/dL (70-99); SODIUM SERUM 137 mmol/L (136-145); UREA NITROGEN, BLOOD 16 mg/dL (8-21)
[2018-04-20 08:18] LABS: BASOPHILS % (AUTO) 0.1 % (0.0-2.0); EOSINOPHILS % (AUTO) 0.1 % (0.0-4.0); HEMATOCRIT 25.6 % (36-54); HEMOGLOBIN 8.9 g/dL (14.0-18.0); LYMPHOCYTES # (AUTO) 0.5 K/uL (1.0-5.5); LYMPHOCYTES % (AUTO) 5.1 % (20.5-51.5); MEAN CORPUSCULAR HEMOGLOBIN 37 pg (27-31); MEAN CORPUSCULAR HGB CONC 35 % (32-36); MEAN CORPUSCULAR VOLUME 107 fL (79.0-98.0); MONOCYTES # (AUTO) 0.5 K/uL (0.0-1.0); MONOCYTES % (AUTO) 6.1 % (1.7-9.3); NEUTROPHILS # (AUTO) 7.9 K/uL (1.8-7.7); NEUTROPHILS % (AUTO) 88.6 % (40.0-70.0); PLATELET COUNT (AUTO) 172 K/uL (130-430); WHITE BLOOD COUNT (AUTO) 8.9 K/uL (4.8-10.8)
[2018-04-20] MEDS: FERROUS SULFATE 140 MG TABLET.ER PO SCH (08:46)
[2018-04-20] MEDS: APIXABAN 2.5 MG TABLET PO SCH ×2 (08:46→22:18)
[2018-04-20] MEDS: ASCORBIC ACID 500 MG TABLET PO SCH ×2 (08:47→22:16)
[2018-04-20] MEDS: FOLIC ACID 1 MG TABLET PO SCH (08:47)
[2018-04-20] MEDS: PANTOPRAZOLE SODIUM 40 MG TAB PO SCH (08:47)
[2018-04-20] MEDS: METOPROLOL TARTRATE 50 MG TABLET PO SCH ×2 (08:47→22:17)
[2018-04-20] MEDS: MULTIVITAMINS TAB 1 TABLET PO SCH (08:47)
[2018-04-20 11:00] VITALS: BP_SYST 115
[2018-04-20 12:19] VITALS: BP_SYST 115
[2018-04-20 16:23] VITALS: BP_SYST 123
[2018-04-20] MEDS: SENNOSIDES 8.6 MG TABLET PO SCH (21:00)
[2018-04-20] MEDS: SIMVASTATIN 20 MG TABLET PO SCH (21:00)
[2018-04-21] MEDS: HYDROcodone/ACETAMIN 5-325 MG TAB (NORCO/ VICODIN) PO PRN ×3 (00:03→21:42)
[2018-04-21 00:10] VITALS: BP_SYST 136
[2018-04-21] MEDS: PIPERACILLIN/TAZO 3.375/DEX-IS 50 ML IV SCH ×4 (05:48→23:02)
[2018-04-21] MEDS: IPRATROPIUM/ALBUTEROL SULFATE 3 ML AMPUL.NEB (DUONEB) INH SCH ×5 (07:36→23:00)
[2018-04-21 08:30] VITALS: BP_SYST 116
[2018-04-21] MEDS: FOLIC ACID 1 MG TABLET PO SCH (10:46)
[2018-04-21] MEDS: METOPROLOL TARTRATE 50 MG TABLET PO SCH ×2 (10:46→21:41)
[2018-04-21] MEDS: ASCORBIC ACID 500 MG TABLET PO SCH ×2 (10:47→21:41)
[2018-04-21] MEDS: MULTIVITAMINS TAB 1 TABLET PO SCH (10:47)
[2018-04-21] MEDS: PANTOPRAZOLE SODIUM 40 MG TAB PO SCH (10:47)
[2018-04-21] MEDS: PREDNISONE 20 MG TABLET PO SCH (10:47)
[2018-04-21] MEDS: FERROUS SULFATE 140 MG TABLET.ER PO SCH (10:47)
[2018-04-21] MEDS: APIXABAN 2.5 MG TABLET PO SCH ×2 (10:50→21:44)
[2018-04-21 12:35] VITALS: BP_SYST 112
[2018-04-21 16:43] VITALS: BP_SYST 116
[2018-04-21 20:50] VITALS: BP_SYST 135
[2018-04-21] MEDS: SENNOSIDES 8.6 MG TABLET PO SCH (21:42)
[2018-04-21] MEDS: SIMVASTATIN 20 MG TABLET PO SCH (21:43)
[2018-04-22 00:38] VITALS: BP_SYST 140
[2018-04-22] MEDS: IPRATROPIUM/ALBUTEROL SULFATE 3 ML AMPUL.NEB (DUONEB) INH SCH ×3 (03:00→11:20)
[2018-04-22] MEDS: HYDROcodone/ACETAMIN 5-325 MG TAB (NORCO/ VICODIN) PO PRN (03:32)
[2018-04-22] MEDS: PIPERACILLIN/TAZO 3.375/DEX-IS 50 ML IV SCH ×2 (05:19→12:51)
[2018-04-22] MEDS: MULTIVITAMINS TAB 1 TABLET PO SCH (08:25)
[2018-04-22] MEDS: FOLIC ACID 1 MG TABLET PO SCH (08:25)
[2018-04-22] MEDS: PREDNISONE 20 MG TABLET PO SCH (08:25)
[2018-04-22] MEDS: PANTOPRAZOLE SODIUM 40 MG TAB PO SCH (08:25)
[2018-04-22] MEDS: ASCORBIC ACID 500 MG TABLET PO SCH (08:25)
[2018-04-22] MEDS: APIXABAN 2.5 MG TABLET PO SCH (08:25)
[2018-04-22] MEDS: METOPROLOL TARTRATE 50 MG TABLET PO SCH (08:26)
[2018-04-22] MEDS: FERROUS SULFATE 140 MG TABLET.ER PO SCH (08:26)
[2018-04-22 11:22] VITALS: BP_SYST 134
[2018-04-22 12:38] VITALS: BP_SYST 134
== END 2018-04-22 15:15 | DRG 469 ==
LOC: SED 16:11 → STU 17:52 → SIC 04-15 18:42 → STU 04-17 13:55 → SMU 04-21 21:50
PROVIDERS: ADMIT Internal Medicine; ATTEND Internal Medicine
PROC: 0SRS0JZ Replacement of Left Hip Joint, Femoral Surface with Synthetic Substitute, Open Approach (ICD-10-PCS; principal; 2018-04-15 11:00)
DX: S72.142A Displaced intertrochanteric fracture of left femur, initial encounter for closed fracture (principal); J69.0 Pneumonitis due to inhalation of food and vomit; J44.0 Chronic obstructive pulmonary disease with (acute) lower respiratory infection; J44.1 Chronic obstructive pulmonary disease with (acute) exacerbation; I48.2 Chronic atrial fibrillation; I10 Essential (primary) hypertension; M06.9 Rheumatoid arthritis, unspecified; M19.90 Unspecified osteoarthritis, unspecified site; E86.1 Hypovolemia; W01.0XXA Fall on same level from slipping, tripping and stumbling without subsequent striking against object, initial encounter; Z96.642 Presence of left artificial hip joint; Z96.661 Presence of right artificial ankle joint; E87.5 Hyperkalemia; I95.9 Hypotension, unspecified; Z86.79 Personal history of other diseases of the circulatory system; Z87.891 Personal history of nicotine dependence; Z79.01 Long term (current) use of anticoagulants; Y93.89 Activity, other specified; Y92.89 Other specified places as the place of occurrence of the external cause; Y99.8 Other external cause status
CPT/HCPCS: 36415; 71045; 72192-TC; 73501; 73502; 80048; 80053; 81000-TC; 82150-TC; 82550-TC; 82962; 83036; 83605; 83690-TC; 84443-TC; 84484; 85025; 85610-TC; 85730-TC; 86886; 86900; 86901; 87040-TC; 87070-TC; 87081; 87205-TC; 88305; 88311; 93005; 94010; 94640; 94760; 96361; 96374; 96375; 96376; 97110-GP; 97116-GP; 97530-GP; 99285; C1776; G0378; J0690; J0696; J1030; J1815; J1885; J1940; J2250; J2270; J2274; J2310; J2405; J2543; J3475; J7030; J7060; J7120; J7512; J7613; J7620; Q0163